=== PATIENT | female | born 1955 | race Caucasian/White ===

== ENCOUNTER 2018-03-05 13:32 | Outpatient (CLI) | payer OTHER | END 2018-03-05 13:33 | disposition home or self-care (01) | LOC: BICULT 13:32 | PROVIDERS: ATTEND Nurse Practitioner Family | DX: M79.604 Pain in right leg (principal) ==

== ENCOUNTER 2019-02-18 07:18 | Outpatient (CLI) | payer BC ==
--- NOTE | 2019-02-18 09:37 | RAD ---
EXAM: Chest PA and lateral: HISTORY: Shortness of breath COMPARISON: 2013 FINDINGS: Lung holley are clear. Vascular markings are normal. Heart and mediastinum appear unremarkable. Vascularity is normal. Osseous structures are unremarkable. IMPRESSION: Unremarkable chest
--- NOTE | 2019-02-18 09:48 | RAD ---
Exam: 3 views of the lumbosacral spine HISTORY: Low back pain COMPARISON: Prior exam dated November 13, 2016 FINDINGS: There are five lumbar type vertebra. No acute fracture or subluxation. There is stable mild disc degenerative and facet osteoarthritic change. There are vascular calcificat ion involving the abdominal aorta. There is partial visualization of left total hip prosthesis. IMPRESSION: Stable mild lumbar spondylosis
--- NOTE | 2019-02-18 09:52 | RAD ---
Thoracic spine: 2 views INDICATIONS: Back pain FINDINGS: Thoracic vertebra maintain normal height and alignment. There are mild to moderate degenera tive osteophytes seen, more prominent in the lower thoracic spine. Disc spaces are maintained. IMPRESSION: Degenerative changes of thoracic spine. Bridging osteophytes are seen anteriorly and late rally in the mid and lower thoracic spine.
--- NOTE | 2019-02-18 09:55 | RAD ---
Cervical spine: 4 views HISTORY: Cervical pain FINDINGS: Cervical vertebral maintain height. Moderate degenerative changes are noted at C6-7 level. Disc space narrowing with hypertrophic spurring at this level. The other disc spaces are preserved. Mild anterior spurring at C5. Mild facet hypertrophy. IMPRESSION: Moderate degenerative changes at C5-6-7.
== END 2019-02-18 07:19 | disposition home or self-care (01) ==
LOC: RAD-FRANK 07:18
PROVIDERS: ATTEND Nurse Practitioner Family
DX: M54.9 Dorsalgia, unspecified (principal); R06.00 Dyspnea, unspecified; M47.812 Spondylosis without myelopathy or radiculopathy, cervical region; M47.814 Spondylosis without myelopathy or radiculopathy, thoracic region; M47.816 Spondylosis without myelopathy or radiculopathy, lumbar region
CPT/HCPCS: 71046; 72040; 72070; 72100

== ENCOUNTER 2019-12-09 15:15 | Outpatient (CLI) | payer BC ==
--- NOTE | 2019-12-09 16:13 | BD ---
DEXA BONE DENSITOMETRY: (Dual energy X-ray Absorptiometry) DATE: 12/09/19 HISTORY: 64-year-old white female for follow-up, age-related, postmenopausal, osteoporosis screening examinati on. Height: 62 inches. Weight: 150 lb. Age of menopause: 61 years COMPARISON: 08/22/16 FINDINGS: The bone mineral density (BMD) is given in grams per square centimeter (g/cm2): LUMBAR SPINE: BMD(g/cm2) T-score Z-score L1: 0.853 -1.2 0.3 L2: 0.854 -1.6 0.1 L3: 0.923 -1.5 0.4 L4: 0.865 -1.8 0.1 Total: 0.876 -1.6 0.2 Change in BMD compared to previous DEXA: -1.1% HIP: Femoral neck: 0.588 -2.4 -0.9 Total: 0.712 -1.9 -0.7 Change in BMD compared to previous DEXA: -3.6% IMPRESSION: 1) The mean bone mineral density of the lumbar spine is osteopenic. Fracture risk is increased. 2) The bone mineral density of the femoral neck is osteopenic. Fracture risk is increasd. DIMITRI White POS: [facility]
== END 2019-12-09 15:16 | disposition home or self-care (01) ==
LOC: BICMAMMO 15:15
PROVIDERS: ATTEND Nurse Practitioner Family
DX: Z13.820 Encounter for screening for osteoporosis (principal); M85.89 Other specified disorders of bone density and structure, multiple sites
CPT/HCPCS: 77080

== ENCOUNTER 2020-04-27 07:32 | Outpatient (CLI) | payer BC, OTHER ==
--- NOTE | 2020-04-27 08:16 | ULT ---
ULTRASOUND ABDOMEN: HISTORY: Abdominal pain FINDINGS: The spleen, gallbladder, pancreas, kidneys and visualized portions of the aorta and IVC appear normal . The common duct measures 4mm in diameter. No free fluid is seen. There is increased echogenicity of the liver, consistent fatty infiltration without focal mass or abnormal biliary ductal dilatation. IMPRESSION: Fatty liver
== END 2020-04-27 07:33 | disposition home or self-care (01) ==
LOC: BICULT 07:32
PROVIDERS: ATTEND Nurse Practitioner Family
DX: R10.9 Unspecified abdominal pain (principal); K76.0 Fatty (change of) liver, not elsewhere classified
CPT/HCPCS: 93975

== ENCOUNTER 2020-09-13 11:13 | Outpatient (CLI) | payer BC, OTHER ==
--- NOTE | 2020-09-13 11:41 | RAD ---
PA AND LATERAL VIEWS CHEST: HISTORY: Cough. COMPARISON: 02/18/2019. FINDINGS: The heart size is normal. The lungs are expanded without lobar consolidation, pneumothoraces, or ple ural effusions. There are degenerative changes in the spine. IMPRESSION: No radiographic evidence of acute cardiopulmonary process. POS: [facility]
== END 2020-09-13 11:14 | disposition home or self-care (01) ==
LOC: RAD-FRANK 11:13
PROVIDERS: ATTEND Nurse Practitioner Family
DX: R05 Cough (principal)
CPT/HCPCS: 71046